=== PATIENT | male | born 1975 | race Caucasian/White ===

== ENCOUNTER 2019-11-07 15:10 | Emergency (ER) | payer OTHER ==
[~2019-11-07] VITALS: Ht 172.7 cm; Wt 163.3 kg
[2019-11-07 15:39] VITALS: Ht 172.7 cm; Wt 163.3 kg
[2019-11-07 17:56] VITALS: BP 145/68
== END 2019-11-07 17:56 | disposition home or self-care (01) ==
LOC: ED 15:10
DX: S76.911A Strain of unspecified muscles, fascia and tendons at thigh level, right thigh, initial encounter (principal); X58.XXXA Exposure to other specified factors, initial encounter; Y93.89 Activity, other specified; Y92.89 Other specified places as the place of occurrence of the external cause; Y99.8 Other external cause status